=== PATIENT | female | born 1970 | race African-American/Black ===

== ENCOUNTER 2017-01-10 22:41 | Emergency (ER) | payer OTHER ==
[~2017-01-10] VITALS: Ht 154.9 cm; Wt 108.9 kg
[~2017-01-10 22:41] MED LIST: FLAGYL500 MG PO; LOSARTAN-HCTZ1 EACH PO
[2017-01-10 23:33] LABS: URINE BILIRUBIN NEGATIVE (Negative); URINE BLOOD NEGATIVE (Negative); URINE COLOR YELLOW; URINE GLUCOSE-RANDOM* NEGATIVE (Negative); URINE KETONES TRACE (Negative); URINE NITRITE NEGATIVE (Negative); URINE PROTEIN (DIPSTICK) NEGATIVE (Negative); URINE SPECIFIC GRAVITY 1.015 (1.003-1.035); URINE UROBILINOGEN 0.2 E.U./dl (0.2-1.0)
[2017-01-11 00:58] VITALS: BP 152/98
[2017-01-13 14:09] LABS: CHLAMYDIA TRACHOMATIS-PCR Negative (Negative); NEISSERIA GONORRHEA-PCR Negative (Negative)
== END 2017-01-11 00:43 | disposition home or self-care (01) ==
LOC: ER 22:41
PROVIDERS: Emergency Medicine
DX: N34.2 Other urethritis (principal); I10 Essential (primary) hypertension; F10.99 Alcohol use, unspecified with unspecified alcohol-induced disorder; Z88.6 Allergy status to analgesic agent; Z88.1 Allergy status to other antibiotic agents; Z88.2 Allergy status to sulfonamides; Z98.890 Other specified postprocedural states

== ENCOUNTER 2017-06-14 08:46 | Emergency (ER) | payer OTHER ==
[~2017-06-14] VITALS: Ht 154.9 cm; Wt 112.5 kg
[2017-06-14 09:32] LABS: URINE BILIRUBIN NEGATIVE (Negative); URINE BLOOD TRACE (Negative); URINE CLARITY CLEAR; URINE COLOR YELLOW; URINE GLUCOSE-RANDOM* NEGATIVE (Negative); URINE KETONES NEGATIVE (Negative); URINE LEUKOCYTES NEGATIVE (Negative); URINE NITRITE NEGATIVE (Negative); URINE PROTEIN (DIPSTICK) NEGATIVE (Negative); URINE SPECIFIC GRAVITY 1.015 (1.005-1.035); URINE UROBILINOGEN 0.2 E.U./dl (0.2-1.0)
[2017-06-14] MEDS ORDERED: MOBIC15 MG PO (10:43)
== END 2017-06-14 11:16 | disposition home or self-care (01) ==
LOC: ER 08:46
PROVIDERS: Nurse Practitioner
DX: N34.2 Other urethritis (principal); I10 Essential (primary) hypertension; Z88.1 Allergy status to other antibiotic agents; Z88.2 Allergy status to sulfonamides

== ENCOUNTER 2018-03-12 02:34 | Emergency (ER) | payer OTHER ==
[~2018-03-12] VITALS: Ht 154.9 cm; Wt 111.1 kg
[~2018-03-12 02:34] MED LIST changes: +MOBIC15 MG PO
[2018-03-12] MEDS ORDERED: PREDNISONE 20 M20 MG PO (03:05)
[2018-03-12] MEDS ORDERED: PEPCID20 MG PO (03:05)
== END 2018-03-12 03:36 | disposition home or self-care (01) ==
LOC: ER 02:34
DX: L50.9 Urticaria, unspecified (principal); I10 Essential (primary) hypertension; Z88.6 Allergy status to analgesic agent; Z88.1 Allergy status to other antibiotic agents; Z88.8 Allergy status to other drugs, medicaments and biological substances; Z88.5 Allergy status to narcotic agent; Z88.2 Allergy status to sulfonamides; Z98.890 Other specified postprocedural states

== ENCOUNTER 2020-11-28 07:40 | Emergency (ER) | payer BC, OTHER ==
[~2020-11-28] VITALS: Ht 154.9 cm; Wt 111.1 kg
[~2020-11-28 07:40] MED LIST changes: +PEPCID20 MG PO; +PREDNISONE 20 M20 MG PO
[2020-11-28 07:45] VITALS: BP 168/87
--- NOTE | 2020-11-28 12:47 | EKG ---
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
== END 2020-11-28 09:49 | disposition home or self-care (01) ==
LOC: ER 07:40
DX: R07.89 Other chest pain (principal); I10 Essential (primary) hypertension; Z79.899 Other long term (current) drug therapy; Z88.1 Allergy status to other antibiotic agents; Z88.2 Allergy status to sulfonamides; Z88.8 Allergy status to other drugs, medicaments and biological substances; Z88.6 Allergy status to analgesic agent

== ENCOUNTER 2020-12-07 05:08 | Emergency (ER) | payer BC, OTHER ==
[~2020-12-07] VITALS: Ht 154.9 cm; Wt 110.7 kg
[2020-12-07 07:15] LABS: HEMATOCRIT 30.5 % (37.0-47.0); HEMOGLOBIN 9.8 gm/dL (12.0-15.0); MCH 24.4 pg (26.0-34.0); MCHC 32.1 g/dL (28.0-37.0); RBC 4.02 mil/uL (4.20-5.00); RDW 18.1 % (10.5-14.5); WBC 4.7 thou/uL (4.0-11.0)
[2020-12-07 07:24] LABS: ANION GAP 7 mmol/L (7-16); BUN 5 mg/dL (7-18); CALCIUM 9.1 mg/dL (8.5-10.1); CHLORIDE 103 mmol/L (98-107); CO2 29 mmol/L (21-32); CREATININE 0.9 mg/dL (0.6-1.0); GLUCOSE 114 mg/dL (74-106); POTASSIUM 3.4 mmol/L (3.5-5.1); SODIUM 139 mmol/L (136-145)
[2020-12-07 07:32] LABS: TROPONIN-I <0.06 ng/mL (<0.06)
[2020-12-07] MEDS ORDERED: NEXIUM40 MG PO (08:00)
[2020-12-07 08:08] VITALS: BP 163/99
--- NOTE | 2020-12-07 20:06 | EKG ---
[address] [place] [address] ELECTROCARDIOGRAM REPORT Name: NEMESIO OH Room #: 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
== END 2020-12-07 08:08 | disposition home or self-care (01) ==
LOC: ER 05:08
PROVIDERS: Emergency Medicine
DX: K21.9 Gastro-esophageal reflux disease without esophagitis (principal); I10 Essential (primary) hypertension; Z79.899 Other long term (current) drug therapy; Z88.6 Allergy status to analgesic agent; Z88.1 Allergy status to other antibiotic agents; Z88.2 Allergy status to sulfonamides; Z88.8 Allergy status to other drugs, medicaments and biological substances